=== PATIENT | male | born 1950 ===

== ENCOUNTER 2022-07-17 05:55 | Observation (INO) | payer MEDICARE, SELFPAY ==
[2022-07-17] VITALS (106 sets, daily range): BP systolic 114–207; BP diastolic 70–168; PULSE 59–104; RESP 15–29; TEMP 36.6–36.7; O2SAT 84–99; BMI 34.2
--- NOTE | 2022-07-17 06:00 | ECG_ITS ---
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 Measurements Intervals [place] Rate: 70 P: 58 IN: 157 QRS: -48 QRSD: 102 T: 19 QT: 372 QTc: 403 Interpretive Statements SINUS RHYTHM PATTERN CONSISTENT WITH PULMONARY DISEASE LEFT ANTERIOR FASCICULAR BLOCK [QRS AXIS <= -45, QR IN I, RS IN II] No previous ECG available for comparison Electronically Signed On 07-17-2022 18:16:30 SPEECH AND LANGUAGE SPECIALIST by Andrwe Rowland M.D. [email or web address] sault[id number]
--- NOTE | 2022-07-17 06:00 | XRR_ITS ---
PROCEDURE INFORMATION: Exam: XR Chest Exam date and time: 07/17/2022 6:28 AM Age: 71 years old Clinical indication: Cough and dyspnea; Additional info: Dyspnea/cough TECHNIQUE: Imaging protocol: Radiologic exam of the chest. Views: 1 view. COMPARISON: No relevant prior studies available. FINDINGS: Lungs: Lungs are clear. Pleural spaces: There is no pleural effusion or pneumothorax. Heart/Mediastinum: Cardiomediastinal contours are unremarkable. Bones/joints: Bones are unremarkable. XR/XR chest 1V portable [id number] IMPRESSION: No acute findings.
[2022-07-17 06:10] LABS: Basophils # 0.1 10^3/uL (0.0-0.1); Basophils % 0.9 %; Eosinophils # 0.1 10^3/uL (0.0-0.8); Eosinophils % 1.1 %; Hematocrit 43.2 % (42.0-52.0); Hemoglobin 14.3 g/dL (11.7-16.6); Lymphocytes # 2.2 10^3/uL (0.8-4.8); Lymphocytes % 27.2 %; Mean Corpuscular HGB Conc 33.1 g/dL (30.0-36.0); Mean Corpuscular Hemoglobin 31.1 pg (28.0-34.0); Mean Corpuscular Volume 93.9 fl (80-94); Mean Platelet Volume 9.5 fL (7.4-10.4); Monocytes # 0.8 10^3/uL (0.2-0.9); Monocytes % 9.5 %; Neutrophils # 4.84 10^3/uL (1.8-7.7); Nucleated Red Blood Cells % 0 %; Platelet Count 242 10^3/cmm (130-400); Red Cell Distribution Width 13.4 % (12.1-15.1); White Blood Count 7.9 10^3/uL (4.0-10.0)
[2022-07-17] MEDS: aspirin 81 mg Chew Tablet 162 MG PO (06:15)
--- NOTE | 2022-07-17 06:20 | ED_ITS ---
HPI - Chest Pain General: Chief Complaint: Chest Pain Stated Complaint: Chest Pains Time Seen by Provider: 07/17/22 05:59 Source: patient and family Mode of arrival: ambulatory History of Present Illness: 71-year-old male presents to the emergency room complaining of substernal chest pain that began around 2 or 3 this morning while he was sleeping. He has a history of hypertension SoloSite and hydrochlorothiazide. He had a similar episode of chest discomfort about 2 or 3 days ago resolved spontaneously. He had taken 2 aspirin prior to coming in he was given 2 more after arrival here. Patient does not speak Welsh his family member that is with him translates at the bedside. Patient is awake and alert not in no acute distress. Patient denies any history of diabetes or smoking no known history of previous coronary artery disease. He is not associated with taking that exacerbates or relieves the chest discomfort. MD complaint: chest pain Onset (ago): hour(s) Timing of current episode: episodic Prior episodes: Yes Onset: during rest Pain location: substernal Pain radiation: none Severity: mild Quality: tightness, aching and heaviness Relieving factors: nothing Associated symptoms: Deny abdominal pain, diaphoresis, dyspnea, fever(s), leg edema, nausea, palpitations, sense of impending doom, syncope or vomiting Treatment prior to arrival: none Review of Systems Const: Denies: fever(s), chills or diaphoresis ENMT: Denies: throat pain, ear or mastoid pain, nasal discharge or nasal congestion Card: Denies: chest pain, palpitations or syncope Resp: Denies: dyspnea GI: Denies: abdominal pain, nausea or vomiting : Denies: flank pain, dysuria, urinary frequency or urinary urgency Skin/Breast: Denies: rash or pruritus [facility] ED PFSH: Medical History (Updated 07/17/22 @ 08:41 by William Braswell DO) Hypertension Obesity Social History (Updated 07/17/22 @ 06:23 by William Braswell DO) Smoking and tobacco status: never smoked Physical Exam Const: COMMON NORMALS: no acute distress GENERAL APPEARANCE: cooperative and comfortable ORIENTATION/CONSCIOUSNESS: Yes awake, Yes oriented to person, Yes oriented to place and Yes oriented to time HENMT: COMMON NORMALS: normocephalic, atraumatic and hearing grossly normal bilaterally HEAD & SCALP: normocephalic and atraumatic Resp: COMMON NORMALS: normal respiratory effort, No retractions, No use of accessory muscles and clear to auscultation bilaterally AUSCULTATION: clear to auscultation bilaterally Cardio: COMMON NORMALS: regular rate, regular rhythm and No murmurs present (Cardio) RATE: regular rate RHYTHM: regular rhythm GI: COMMON NORMALS: Soft to palpation and No hepatosplenomegaly present AUSCULTATION: Yes normoactive bowel sounds PALPATION: Yes Soft to palpation, No Tenderness to palpation present (GI), No Guarding due to palpation present (GI) and Yes No hepatosplenomegaly present Extremity: COMMON NORMALS: normal to inspection, capillary refill normal, no clubbing, cyanosis or edema, no calf tenderness and no pedal edema Neuro: SENSORIUM/ORIENTATION: Yes oriented to person, Yes oriented to place and Yes oriented to time Skin: COMMON NORMALS: no rashes or lesions noted GENERAL SKIN EXAM: no rashes or lesions noted Course Vital Signs: Vital signs: Vital Signs Temperature 98.0 F 07/17/22 06:07 Pulse Rate 63 07/17/22 07:30 Respiratory Rate 18 07/17/22 06:35 Blood Pressure 155/85 07/17/22 07:30 Pulse Oximetry 96 07/17/22 07:30 Oxygen Delivery Me thod 07/17/22 07:30 MDM - Chest Pain Medical Decision Making Unstable angina. Positive delta troponin no EKG changes that are significant no ST elevation sinus rhythm with a left anterior fascicular block with a rate of 60. He is symptom-free at this time although remains somewhat hypertensive. He is not known to be diabetic his fasting glucose this morning was 111. Patient given [address] of [address] and will place him on topical Nitropaste start heparin admit to [facility] under Dr. Washington. Dr. Washington states he will contact on-call cardiology. Medical Records I reviewed the patient's medical records. Lab Data I reviewed the patient's lab results. 07/17/22 06:00 07/17/22 06:00 Laboratory Results WBC 7.9 10^3/uL (4.0-10.0) 07/17/22 06:00 RBC 4.60 10^6/uL (4.1-5.3) 07/17/22 06:00 Hgb 14.3 g/dL (11.7-16.6) 07/17/22 06:00 Hct 43.2 % (42.0-52.0) 07/17/22 06:00 MCV 93.9 fl (80-94) 07/17/22 06:00 MCH 31.1 pg (28.0-34.0) 07/17/22 06:00 MCHC 33.1 g/dL (30.0-36.0) 07/17/22 06:00 RDW 13.4 % (12.1-15.1) 07/17/22 06:00 Plt Count 242 10^3/cmm (130-400) 07/17/22 06:00 MPV 9.5 fL (7.4-10.4) 07/17/22 06:00 Neut % (Auto) 61.0 % 07/17/22 06:00 Lymph % (Auto) 27.2 % 07/17/22 06:00 [place] % (Auto) 9.5 % 07/17/22 06:00 Eos % (Auto) 1.1 % 07/17/22 06:00 Baso % (Auto) 0.9 % 07/17/22 06:00 Neut # (Auto) 4.84 10^3/uL (1.8-7.7) 07/17/22 06:00 Lymph # (Auto) 2.2 10^3/uL (0.8-4.8) 07/17/22 06:00 [place] # (Auto) 0.8 10^3/uL (0.2-0.9) 07/17/22 06:00 Eos # (Auto) 0.1 10^3/uL (0.0-0.8) 07/17/22 06:00 Baso # (Auto) 0.1 10^3/uL (0.0-0.1) 07/17/22 06:00 Nucleated RBC % (auto) 0 % 07/17/22 06:00 Nucleated RBCs # 0.0 /100WBC 07/17/22 06:00 Sodium 135 mmol/L (136-145) L 07/17/22 06:00 Potassium 3.9 mmol/L (3.5-5.1) 07/17/22 06:00 Chloride 102 mmol/L (98-107) 07/17/22 06:00 Carbon Dioxide 22 mmol/L (22-29) 07/17/22 06:00 Anion Gap 14.9 (5-19) 07/17/22 06:00 BUN 20 mg/dL (8-23) 07/17/22 06:00 Creatinine 1.0 mg/dL (0.7-1.2) 07/17/22 06:00 GFR Calculation Not Reportable 07/17/22 06:00 Glucose 111 mg/dL (65-115) 07/17/22 06:00 Calculated Osmolality 283 mOsm/kg (285-295) L 07/17/22 06:00 Calcium 9.1 mg/dL (8.5-10.5) 07/17/22 06:00 Total Bilirubin 0.4 mg/dL (0.15-1.2) 07/17/22 06:00 AST 32 U/L (0-40) 07/17/22 06:00 ALT 41 U/L (0-41) 07/17/22 06:00 Alkaline Phosphatase 83 U/L (40-130) 07/17/22 06:00 Troponin T Baseline 70 ng/L (0-15) H 07/17/22 06:00 Troponin T 120 Minute 98.75 ng/L (0-15) H 07/17/22 07:54 Delta Troponin T 28.75 ABS# (0-10) H* 07/17/22 07:54 Total Protein 7.2 g/dL (6.6-8.7) 07/17/22 06:00 Albumin 3.9 g/dL (3.5-5.2) 07/17/22 06:00 Globulin 3.3 g/dL (1.3-4.6) 07/17/22 06:00 Discharge Plan Discharge Patient Disposition: Placed in Observation Clinical Impression: Unstable angina pectoris, Hypertension, Non-ST elevation [place] (NSTEMI) Prescriptions: No Action losartan-hydrochlorothiazide 100-12.5 mg tablet 1 tab PO DAILY Patient Instructions: Opioid Safety, Pain Management Coding Level of Care Code ED Senior Materials Scientist for Pacheco Abel
[2022-07-17 06:32] LABS: Alanine Aminotransferase 41 U/L (0-41); Albumin Level 3.9 g/dL (3.5-5.2); Alkaline Phosphatase 83 U/L (40-130); Aspartate Amino Transferase 32 U/L (0-40); Blood Urea Nitrogen 20 mg/dL (8-23); Calcium 9.1 mg/dL (8.5-10.5); Carbon Dioxide 22 mmol/L (22-29); Chloride 102 mmol/L (98-107); Globulin 3.3 g/dL (1.3-4.6); Glucose 111 mg/dL (65-115); Osmolality Calculated 283 mOsm/kg (285-295); Sodium 135 mmol/L (136-145); Total Bilirubin 0.4 mg/dL (0.15-1.2); Total Protein 7.2 g/dL (6.6-8.7)
[2022-07-17 06:34] LABS: Troponin(5th) Baseline 70 ng/L (0-15)
[2022-07-17 06:41] LABS: Anion Gap 14.9 (5-19); Potassium 3.9 mmol/L (3.5-5.1)
--- NOTE | 2022-07-17 08:00 | ECG_ITS ---
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 Measurements Intervals [place] Rate: 61 P: 39 [place]: 157 QRS: -67 QRSD: 115 T: 33 QT: 407 QTc: 411 Interpretive Statements SINUS RHYTHM LEFT ANTERIOR FASCICULAR BLOCK [QRS AXIS <= -45, QR IN I, RS IN II] POSSIBLE LATERAL MYOCARDIAL INFARCTION , OF INDETERMINATE AGE [30 ms Q WAVE IN I/aVL/V5/V6] Compared to ECG 07/17/2022 06:01:38 Myocardial infarct finding now present Electronically Signed On 07-17-2022 18:21:23 WARP TYING MACHINE KNOTTER by Andrew Rowland M.D. [email or web address] medical [email or web address] specialty [email or web address] [email or web address]/store/[id number]
[2022-07-17 08:20] LABS: Troponin 5 2HR 98.75 ng/L (0-15)
[2022-07-17 08:27] LABS: Troponin 5 2HR Delta 28.75 ABS# (0-10)
[2022-07-17 08:54] LABS: INR 0.95 (0.8-1.2)
[2022-07-17 08:55] LABS: Partial Thromboplastin Time 25.3 SECONDS (23.9-36.7)
--- NOTE | 2022-07-17 08:57 | P.HP_ITS ---
Providers/Chief Complaint Admitting Physician: Anthony Carvajal MD, hospitalist Chief Complaint: Chest Pains History of Present Illness Marito Ortiz is a 71 year old male that presents to the emergency department with complaints of chest discomfort, substernal, pressure occurring around 2 AM this morning. He reports it lasted at least 10 minutes, but seem to come and go quite a bit before finally fading away. He had this previously, about 2 weeks ago. This lasted a short time as well and went away. He denies any prior history of heart disease. He does not relate any nausea, vomiting, blood in stool, black or tarry stools, radiation of the discomfort, shortness of breath. He is interviewed with his daughter who provides correlating history. He knows some Zimbabwean, but she provides some translation when he does not understand what is said. Review of Systems General: Reports: 10 or more systems reviewed and unremarkable except in HPI and below Const: Denies: fever(s) or chills Card: Reports: chest pain; Denies: swelling of feet/ankles Resp: Denies: dyspnea GI: Denies: abdominal pain, nausea, vomiting, hematochezia or melena Medications/Allergies Home Medications Medication Instructions Recorded Confirmed Last Taken Type losartan 100 1 tab PO DAILY 07/17/22 07/17/22 Unknown History mg-hydrochlorothiazide 12.5 mg tablet PFSH Acute PFSH: Medical History (Updated 07/17/22 @ 09:28 by Anthony Carvajal MD) Hypertension Hypertension Obesity Obstructive sleep apnea On CPAP Surgical History (Updated 07/17/22 @ 09:25 by Anthony Carvajal MD) History of hernia surgery Social History (Updated 07/17/22 @ 09:25 by Anthony Carvajal MD) Smoking and tobacco status: never smoked Alcohol intake: never Other PFSH information: Supplemental PFSH Information: He relates no family medical problems he is aware of Vitals/I&O/Wt Last Vital Signs Temp 98.0 F 07/17/22 06:07 Pulse 63 07/17/22 07:30 Resp 18 07/17/22 06:35 BP 155/85 07/17/22 07:30 Pulse Ox 96 07/17/22 07:30 O2 Del Method 07/17/22 07:30 Weight last 48 hrs Weight 79.379 kg Physical Exam Narrative: General exam is a male, no distress, denying chest discomfort currently. HEENT: Atraumatic and normocephalic. Pupils equally round. Oropharynx clear. Neck is supple no lymphadenopathy thyromegaly Cardiovascular regular rate and rhythm without murmur, no S3 or S4 Lungs clear no wheezing or crackles Abdomen is soft with positive bowel sounds. No obvious organomegaly exam was deferred Extremities no cyanosis clubbing or edema, cap refill brisk Skin no rash Neuro no obvious focal deficits. Data 07/17/22 06:00 07/17/22 06:00 Other Labs: INR 0.95 LFTs normal Troponin initial 70 with repeat of 98 Albumin 3.9 Chest x-ray no infiltrate by my read EKG demonstrates normal sinus rhythm, left axis deviation, poor R wave progression. No significant ST elevation or deviation is noted. Left anterior fascicular block by my interpretation A&P Assessment and plan (1) Non-ST elevation [place] (NSTEMI): Patient presents with chest discomfort concerning for myocardial infarction. Troponin delta is consistent with non-ST elevation myocardial infarction. Plavix, heparin, aspirin given Add statin Lipid profile in the morning Continue Plavix, aspirin, heparin currently Cardiology consultation. I discussed his case with cardiology as well as the ER physician. We will evaluate if beta-edna is needed. Currently heart rate around 60 so will not initiate at this time Nitroglycerin topical Continue his home blood pressure medication, losartan component at 100 mg daily (2) Hypertension: Continue losartan Evaluate if other additions need to occur (3) Obstructive sleep apnea: He will bring in his home CPAP machine. To wear when sleeping. Plan Full code Heparin will suffice for DVT prophylaxis Attestations Medical Necessity Statement*: May require less than 2 midnight stay. Observation currently Diagnoses Non-ST elevation [place] (NSTEMI) I21.4 Hypertension I10 Obstructive sleep apnea G47.33 Time Spent (min) 41
[2022-07-17] MEDS: heparin 5,000 unit/mL INJ 1 mL IV (09:05)
[2022-07-17] MEDS: heparin drip 25,000 UNIT/500 ML PREMIX 22 UNIT IV (09:07)
[2022-07-17] MEDS: clopidogrel 300 mg Tablet PO (09:09)
--- NOTE | 2022-07-17 10:41 | P.CONIM_ITS ---
Providers/Reason For Consult Consulting Physician/Specialty*: Cardiovascular medicine Reason for Consult*: Chest pain, elevated troponin Requesting Physician: Wei Attending Physician: Wei History of Present Illness History of Present Illness Marito Ortiz is a 71 year old male who has no known prior history of heart disease. He speaks Ecuadorean. His daughter interprets. He has been having chest discomfort off and on for 2 weeks. This morning at 3:00 it became persistent and would not go away. He contacted his family member who brought him into the emergency room. His first troponin was 70 and the second 99. The chest x-ray is negative. His EKGs are unremarkable. He is free of pain. He has been given aspirin, 1 inch of Nitropaste and 300 mg of Plavix. He is also been given heparin bolus and started on a drip. Review of Systems Narrative: Review of systems is negative. Medications/Allergies Home Medications Medication Instructions Recorded Confirmed Last Taken Type losartan 100 1 tab PO DAILY 07/17/22 07/17/22 Unknown History mg-hydrochlorothiazide 12.5 mg tablet Current Medications Generic Name Dose Route Start Last Admin Trade Name Freq PRN Reason Stop Dose Admin Heparin Sodium (Porcine) 0 unit 07/17/22 08:28 07/17/22 09:05 Heparin 5,000 Unit/Ml Inj 1 Ml IV 4,000 unit PRN PRN Administration Heparin weight-base protocol Protocol Heparin Sodium/Sodium Chloride 25,000 unit in 500 mls @ 0 mls/hr 07/17/22 08:30 07/17/22 09:07 Heparin Drip IV 13.86 unit/kg/hr .Q0M IVONNE 22 mls/hr Administration Protocol Per Protocol PFSH Acute PFSH: Medical History (Updated 07/17/22 @ 09:28 by Anthony Carvajal MD) Hypertension Hypertension Obesity Obstructive sleep apnea On CPAP Surgical History (Updated 07/17/22 @ 09:25 by Anthony Carvajal MD) History of hernia surgery Social History (Updated 07/17/22 @ 09:25 by Anthony Carvajal MD) Smoking and tobacco status: never smoked Alcohol intake: never Vitals/I&O/Wt Last Vital Signs Temp 98.0 F 07/17/22 06:07 Pulse 63 07/17/22 07:30 Resp 18 07/17/22 06:35 BP 155/85 07/17/22 07:30 Pulse Ox 96 07/17/22 07:30 O2 Del Method 07/17/22 07:30 Weight last 48 hrs Weight 175 lb Physical Exam Narrative: GENERAL: In general he looks and feels well. He is in no pain at this time. HEENT: Exam within normal limits. NECK: Supple without jugular vein distention. The carotid upstroke is normal without bruits. BACK: Exam normal. LUNGS: Clear. HEART: Regular rate and rhythm. ABDOMEN: Benign without organomegaly or tenderness. EXTREMITIES: No edema. NEUROLOGIC: Exam normal. SKIN: Unremarkable. Data 07/17/22 06:00 07/17/22 06:00 A&P Assessment and plan (1) Obstructive sleep apnea: (2) Hypertension: (3) Unstable angina pectoris: (4) Non-ST elevation [place] (NSTEMI): (5) Hypertension: Plan He clearly is having a cardiac event. We will schedule cardiac catheterization for 7:00 tomorrow morning however we will go sooner if he starts having chest pain. His EKG is unremarkable. Consult Attestations Medical Necessity Statement: Admission for non-ST segment elevation [place] and Moderate Time for a total of 35 minutes, includes reviewing past or interval history, examining/interviewing patient, placing orders, counseling patient/family/other support, updating patient/family/other support, discussing plan of care with staff, communicating with other healthcare providers, documenting encounter and coordinating care Diagnoses Obstructive sleep apnea G47.33 Hypertension I10 Unstable angina pectoris I20.0 Non-ST elevation [place] (NSTEMI) I21.4 Hypertension I10
--- NOTE | 2022-07-17 12:05 | ECG_ITS ---
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 Measurements Intervals [place] Rate: 72 P: 56 [place]: 170 QRS: -74 QRSD: 103 T: 40 QT: 395 QTc: 433 Interpretive Statements SINUS RHYTHM PATTERN CONSISTENT WITH PULMONARY DISEASE LEFT ANTERIOR FASCICULAR BLOCK [QRS AXIS <= -45, QR IN I, RS IN II] Compared to ECG 07/17/2022 08:04:01 Myocardial infarct finding no longer present Electronically Signed On 07-17-2022 18:21:39 [employer] by Andrew Rowland M.D. [id number]
[2022-07-17 13:37] LABS: Troponin 5 6HR 134.3 ng/L (0-15); Troponin 5 6HR Delta 64.3 ng/L (0-12)
--- NOTE | 2022-07-17 15:17 | USCV_ITS ---
Marito Ortiz Age: 71 Gender: M : 1950 Exam Date: 07/17/2022 16:16 Ordering Phys: Anthony Carvajal MD Technologist: MYRON Exam Location: [facility] [place] Indication: CHEST PAIN BP: 110 / 61 HR: 62 Rhythm: Sinus Technical Quality: Suboptimal MEASUREMENTS (Male / Female) Normal Values 2D ECHO LVOT Diameter 2.0 cm LV Ejection Fraction MOD 2C 57.3 % LV Ejection Fraction 2C AL 54.3 % LA Diameter 3.2 cm LA Width 2.8 cm LA Height 4.0 cm RA Width 3.0 cm RA Height 4.4 cm Aorta at Sinotubular Diameter 2.1 cm DOPPLER AV Peak Velocity 170.0 cm/s LVOT Peak Velocity 130.0 cm/s AV Area Cont Eq vti 2.2 cm squared AV Area Cont Eq pk 2.4 cm squared MV Peak Velocity 120.0 cm/s MV Area PHT 3.7 cm squared Mitral E to A Ratio 0.6 MV E' Velocity 43.5 cm/s Mitral E to MV E' Ratio 8.6 Mitral E to LV E' Lateral Ratio 8.4 Mitral E to LV E' Septal Ratio 8.9 TR Peak Velocity 149.8 cm/s TR Peak Gradient 9.0 mmHg TR Mean Velocity 126.2 cm/s TR Mean Gradient 6.5 mmHg TR Velocity Time Integral 40.0 cm TV Peak E Velocity 30.0 cm/s Right Atrial Pressure 8.0 mmHg Pulmonary Artery Systolic Pressu 17.0 mmHg FINDINGS Left Ventricle All views are poor and not useful with the exception of the apical view. The ejection fraction is probably normal. There is normal wall motion in this view. Ejection fraction is 55 to 60%. Grade 1 diastolic dysfunction. Right Ventricle Normal right ventricular size and systolic function. Normal right ventricular systolic pressure. Right Atrium The right atrium is normal in size. Left Atrium The left atrium is normal in size. Mitral Valve Structurally normal mitral valve. No mitral valve regurgitation. Aortic Valve Aortic valve not well visualized. No aortic valve regurgitation. No aortic valve stenosis. Tricuspid Valve Tricuspid valve not well visualized. No tricuspid valve regurgitation. Pulmonic Valve Pulmonic valve not well visualized. Pericardium Normal pericardium without effusion. Aorta Normal ascending aorta dimension. IVC Inferior vena cava not visualized. CONCLUSIONS All views are poor and not useful with the exception of the apical view. The ejection fraction is probably normal. There is normal wall motion in this view. Ejection fraction is 55 to 60%. Grade 1 diastolic dysfunction. There are no prior echocardiogram studies to compare. Dr. Andrew Rowland MD (Electronically Signed) Final Date: 17 July 2022 18:11 S
[2022-07-17] MEDS: sodium chloride 0.9% 1,000 ML 50 ML IV (15:55)
[2022-07-17] MEDS: pantoprazole DR 40 mg Tablet PO (16:03)
[2022-07-17] MEDS: nitroglycerin 1 gm/inch oint Pkt 0.5 INCH TOPICAL (16:07)
[2022-07-17] MEDS: atorvastatin 40 mg Tablet PO (21:14)
[2022-07-18] VITALS (79 sets, daily range): BP systolic 94–180; BP diastolic 59–140; PULSE 59–97; RESP 12–30; TEMP 36.5–36.8; O2SAT 93–98
[2022-07-18 03:34] LABS: Basophils # 0.1 10^3/uL (0.0-0.1); Basophils % 0.8 %; Eosinophils # 0.2 10^3/uL (0.0-0.8); Eosinophils % 3.1 %; Hematocrit 41.8 % (42.0-52.0); Hemoglobin 13.6 g/dL (11.7-16.6); Lymphocytes % 39.1 %; Mean Corpuscular HGB Conc 32.5 g/dL (30.0-36.0); Mean Corpuscular Hemoglobin 31.6 pg (28.0-34.0); Monocytes # 0.8 10^3/uL (0.2-0.9); Monocytes % 10.5 %; Neutrophils # 3.55 10^3/uL (1.8-7.7); Neutrophils % 46.1 %; Nucleated Red Blood Cells % 0 %; Platelet Count 215 10^3/cmm (130-400); Red Blood Count 4.31 10^6/uL (4.1-5.3); Red Cell Distribution Width 13.6 % (12.1-15.1); White Blood Count 7.7 10^3/uL (4.0-10.0)
[2022-07-18 03:50] LABS: Anion Gap 14.2 (5-19); Blood Urea Nitrogen 16 mg/dL (8-23); Calcium 8.9 mg/dL (8.5-10.5); Carbon Dioxide 25 mmol/L (22-29); Chloride 104 mmol/L (98-107); Cholesterol 101 mg/dL (0-200); Glucose 114 mg/dL (65-115); HDL Cholesterol 42 mg/dL (60-100); LDL Cholesterol Calculated 40 mg/dL (50-129); LDL HDL Ratio 0.95 RATIO (0.00-3.22); Magnesium 2.2 mg/dL (1.7-2.3); Osmolality Calculated 290 mOsm/kg (285-295); Potassium 4.2 mmol/L (3.5-5.1); Sodium 139 mmol/L (136-145); Triglycerides 93 mg/dL (0-150)
[2022-07-18 03:56] LABS: Partial Thromboplastin Time 76.4 SECONDS (23.9-36.7)
[2022-07-18] MEDS: aspirin 325 mg Tablet PO (05:55)
[2022-07-18] MEDS: diphenhydrAMINE 50 mg Capsule PO (05:55)
[2022-07-18] MEDS: sodium chloride 0.9% 1,000 ML 50 ML IV (05:57)
--- NOTE | 2022-07-18 06:05 | XACV_ITS ---
Exam Room: [facility] Ht: 152 cm Wt: 79 kg BSA: 1.87 m2 Gender: Male : 1950 Exam Priority: Routine Procedure(s): Procedure Description: Diagnostic procedure Procedure Description: PCI procedure Procedure Description: Left Heart Catheterization Procedure Description: Left ventriculography Procedure Description: PTCA Procedure Description: Coronary Angiography Janett AGOSTO; Diagnostic Cath Status: Elective Diagnostic Findings * Wuc-[id number]-[id number] male with fairly typical chest pain and troponin elevation. Stable after initial medication administration. Recommended for coronary angiography. Procedure done via the right radial artery. Procedure was done with his daughter in the room as the full time staff interpreter. * Coronary angiography reveals right coronary artery dominance. Left main coronary artery is normal. Circumflex is a relatively large vessel. There is a 30% ostial stenosis. There is a 30 to 40% stenosis of the proximal second obtuse marginal branch. Otherwise the circumflex is relatively normal. The LAD is what appears to be normal in size very proximally and then quickly bifurcates into the remainder of the LAD and a diagonal branch. There are several 60 to 70% stenoses in the diagonal branch. The LAD narrows down significantly after the takeoff of the diagonal branch. For the entire proximal portion of the LAD it is quite narrow and in the midportion of this there is an 80% discrete stenosis. The remainder of the LAD appears normal. The right coronary artery is the dominant vessel and ends distally as multiple very small posterior left ventricular branches and a posterior descending artery. The posterior descending artery is likewise quite small. There are multiple 90+ percent lesions in the posterior descending artery along its entire course.. PCI Status: Elective PCI LVEF Assessed: Yes PCI Indication: NSTE - ACS Interventional Findings * I felt the LAD might be the culprit lesion though there certainly could be some involvement of the entire course of the posterior descending artery. Initially I placed a 2.5 mm balloon in the proximal LAD which was difficult to place due to the small nature of the vessel. Balloon angioplasty was performed. I made an attempt to place a stent after this and simply could not pass the stent. I also made an attempt to pass the stent into the diagonal branch. This was also unsuccessful. I decided to stop at this point and see about treating him medically. I felt the PDA was too small to undergo intervention. Decision for PCI with Surgical Consult: No PCI for Multi-vessel Disease: No Conclusions 1. Two-vessel disease with plain old balloon angioplasty of the proximal LAD. Recommendations * Treat medically. If fails consider balloon angioplasty of the diagonal and perhaps the posterior descending artery though these vessels are relatively small. Interventional RX Recommendation: PCI w/o planned CABG Diagnostic RX Recommendation: PCI w/o planned CABG Anticoagulation: Heparin Ventriculography Ejection Fraction: 65.0 % Pressures Phase:Rest AO : 97 / 65 ( 80 ) @ 7:12:00 AM 97 / 68 ( 82 ) @ 7:17:00 AM 74 / 50 ( 55 ) @ 7:22:00 AM 114 / 69 ( 90 ) @ 7:29:00 AM 128 / 83 ( 105 ) @ 7:40:00 AM 93 / 74 ( 84 ) @ 7:50:00 AM LV : 131 / -6 / 14 @ 7:21:00 AM 131 / -15 / 15 @ 7:22:00 AM Clinical Evaluation EBL: 5mL-10mL Procedural Details Procedure Consent Obtained. Admit Source: In Patient. Pre-Procedure Time Out. Identified patient by full name and date of as verbalized by the patient/guarantor. Does the consent match the physician's order: Yes. Accurate & Complete Informed Consent: Yes. Inpatient/Outpatient History & Physical on Chart: Yes. If H&P is completed, is and addenduem needed: No; If yes, is the addendum complete: N/A. Visualize and Verify Site with Patient/Guarantor: N/A. Relevant Radiology Images available: N/A. The risks, benefits, and alternatives of sedation and/or procedure were discussed by physician. The patient agrees to continue. Procedure started. Current diagnosis: NSTEMI. PERRLA. Strong, equal hand makeup artist bilaterally. Lungs clear x 5 lobes. IV Site on Arrival: 20 gauge in the left forearm. IV Fluids: 0.9% NaCl at KVO. 200 mL infused prior to mobile lab technician. Pre Procedural Pulses: bilateral posterior tibial was 3+. Pre Procedural Pulses: bilateral dorsalis pedis was 3+. Pre Procedural Pulses: bilateral radial was 3+. Oxygen started at 2liters/min via nasal canula. right groin was prepped with chloroprep then draped in the usual sterile fashion. right radial was prepped with chloroprep then draped in the usual sterile fashion. Physician notified. Baseline sample Acquired. HR: 59 BPM. [facility] Clinical Fraility Score: 3: Managing Well. Computer Repair Technician Indications: ACS <= 24 hours. Chest Pain Symptom Assessment: Typical Angina Symptoms. Cardiovascular Instability: No. Correct patient, site and procedure confirmed by cath team. Physician arrived. Physician scrubbed in. Immediate Pre-Procedure Time Out. Correct Patient: Yes; Correct Procedure: Yes; Correct Site: Yes; Correct Patient Position: Yes; Correct Supplies: Yes; Dried Flammable Prep: Yes; Blood Products Available: N/A;. Lidocaine 1% infiltrated to the right radial. Arterial access obtained. A 6 [place] TIG catheter in over wire. Multiple views taken of left coronary artery. Catheter redirected to the RCA. Multiple views taken of right coronary artery. Catheter removed over the exchange wire. A 6 [place] Angled Pig catheter in over wire. LV gram performed in CARTER @ 10 mL/second for a total of 30 mL. EDP Sample taken: LV 131/-6,14; HR: 66 BPM; SpO2: 97%. EDP Sample taken: LV 131/-16,15; HR: 74 BPM; SpO2: 96%. Pullback taken: LV Off; AO Off; Mean: , Peak to Peak: , SEP: ; HR: 70 BPM; SpO2: 95%. Physician review of cine films. Catheter removed over the exchange wire. 6 citizen [place] XB 3 guide catheter was inserted over the wire. [place] guidewire was advanced through the guide catheter to lesion in the prox LAD. Stent inserted to lesion in the prox LAD. Unable to cross lesion. Intact stent removed. Balloon inserted to lesion in the prox LAD. Inflation number : 1 A AB TREK [id number] RX BALLOON was prepped and advanced across the Prox LAD , then inflated to 8 EVER[place]O for 0:26 seconds. Balloon out. Stent inserted to lesion in the prox LAD. Unable to cross lesion. Intact stent removed. Guideliner inserted. [id number] Stent inserted to lesion in the prox LAD. Wire redirected down the first diag. Unable to cross lesion. Intact stent removed. Wire out. Guide catheter out. A TR Band was successful obtaining hemostatsis at the Right Radial artery insertion site. PERRLA. Strong, equal hand makeup artist bilaterally. No VTE prophylaxis required. Medication's Wasted: Lidocaine 1% = 1 mL. Medication's Wasted: Nitro = 49.8 mg. Medication's Wasted: Heparin = 1000 units. Medication's Wasted: Other = versed 1mg. Medication's Wasted: Other = 50 mcg. Total IV fluids: 125 mL. Post-op diagnosis: CAD. Complications: none. Estimated blood loss: 5mL-10mL. Responsiveness - Normal response to verbal stimuli; alert and oriented, PERRLA. Airway - Unaffected, no intervention required; spontaneous ventilation. Circulation: W/N/L, pulses unchanged. Nausea/Vomiting: No. Procedure completed. Patient transferred by bed to 1st floor. Vital chart was stopped. Access Site Site: Right Radial artery Sheath Size: 6 Fr Hemostasis Method: TR Band Hemostasis Success: Successful Procedure Medications Start: 7:09 AM Stop: 7:09 AM Medication: Versed Amount: 1 mg Route: I.V. Start: 7:09 AM Stop: 7:09 AM Medication: Fentanyl Amount: 50 mcg Route: I.V. Start: 7:10 AM Stop: 7:10 AM Medication: Nitrogylcerin Amount: 200 mcg Route: I.A. Start: 7:14 AM Stop: 7:14 AM Medication: Heparin Amount: 5000 units Route: I.V. I, the attending physician, have reviewed and verified all procedure medications. Yes, all medications given per verbal order History/Risk Factors Hypertension: Yes Dyslipidemia: No Peripheral Arterial Disease (PAD): No Myocardial Infarction ([place]): No Obesity: No Tobacco Use: Never Prior Interventions PCI: No CABG: No Valve Surgery: No Report Signatures Finalized by Dr. Andrew Rowland MD on 07/18/2022 02:48 PM
--- NOTE | 2022-07-18 08:29 | PC.CHAP ---
Pastoral Care Encounter/Spiritual Assessment Type of Contact [] Declined it systems engineer visit [] Patient/Family/Request visit [] Outpatient visit [] Follow-up visit [] Physician referral [] Code/Alert [x] Routine visit [] Staff referral [] Actively dying [] Patient sleeping [] Family support [] [] Out of room [] Palliative care [] [x] Receiving care in room [] Pre-surgical visit [] Trauma [] Long length of stay [] ICU visit [] Other: Relational/Emotional Strength [] Patient feels connected with others/family/visitors/staff [] Distress [] Loneliness/isolation [] Abandonment Spirituality of Patient [] Person of Mandy [] Attends Lutheran of their Mandy [] Believes in Prayer [] Reads Bible or Denominational materials [] There are Spiritual issues to be addressed Charge Hand Interventions [] Prayer [] Active listening [] Non-anxious presence [] Spiritual/emotional support [] Crisis/trauma care [] Spiritual counseling [] Bereavement support [] Provided bereavement packet [] Provided Bible/devotional materials [] Provided toy/stuffed animal, coloring book to patient or family member [] Provided Communion [] Anointing/[place] [] Salvation [] Completed spiritual assessment [] Other: Impact on Illness or Injury [] Angry [] Fearful [] Anxious [] Often cries [] Exhaustion [] Unable to work [] Unable to attend denominational [] Unable to walk/stand [] Unable to read [] Unable to drive [] Unable to eat/drink [] Unable to sleep [] Unable to be with family [] Patient intubated [] Other: Summary Time spent with patient
[2022-07-18] MEDS: losartan 50 mg Tablet 100 MG PO (09:18)
[2022-07-18] MEDS: clopidogrel 75 mg Tablet PO (09:18)
[2022-07-18] MEDS: isosorbide mononitrate ER 30 mg Tablet PO (09:18)
[2022-07-18] MEDS: sodium chloride 0.9% 1,000 ML 100 ML IV (09:19)
[2022-07-18] MEDS: pantoprazole DR 40 mg Tablet PO (09:19)
[2022-07-18 10:50] LABS: Partial Thromboplastin Time 87.3 SECONDS (23.9-36.7)
--- NOTE | 2022-07-18 11:29 | PM.PN ---
Subjective Subjective: Marito reports he is doing okay. Went underwent angioplasty this morning. Disease was not amenable to stenting. Denies any chest discomfort currently. Nurse noted some blood with urination so urinalysis is going to be sent. Medications: Reviewed: Yes Vitals/I&O/Wt Last Vital Signs Temp 97.7 F 07/18/22 03:26 Pulse 74 07/18/22 09:00 Resp 14 07/18/22 09:00 BP 171/133 07/18/22 09:00 Pulse Ox 95 07/18/22 09:00 O2 Del Method 07/17/22 07:30 07/17/22 07/18/22 07/18/22 22:59 06:59 14:59 Intake Total 714.800 / 714.800 152.667 / 867.467 Output Total 625 / 625 Balance 89.800 / 89.800 152.667 / 242.467 Weight last 48 hrs Weight 79.379 kg Physical Exam Narrative: General exam is a male, no distress Neck is supple no lymphadenopathy thyromegaly Cardiovascular regular rate and rhythm without murmur, no S3 or S4 Lungs clear no wheezing or crackles Abdomen is soft with positive bowel sounds. No obvious organomegaly exam normal penis Extremities no cyanosis clubbing or edema, cap refill brisk Data 07/18/22 02:50 07/18/22 02:50 A&P Assessment and plan (1) Non-ST elevation OK (NSTEMI): Patient presents with chest discomfort concerning for myocardial infarction. Troponin delta is consistent with non-ST elevation myocardial infarction. Plavix, heparin, aspirin were initiated Continue statin He has now had an angiogram, and had diffuse disease. Angioplasty occurred but lesions were not amenable to stenting Plan continue medical treatment currently. Discussed with cardiology. Continue Plavix, aspirin, statin, nitroglycerin. Appreciate cardiology consultation Initially was bradycardic. Will consider beta-edna after evaluation of heart rate further CBC, BMP tomorrow (2) Hypertension: Continue losartan (3) Obstructive sleep apnea: He will bring in his home CPAP machine. To wear when sleeping. Plan Full code Postprocedure. Likely start Lovenox tomorrow. Was previously on a heparin drip Attestations Medical Necessity Statement*: Needs continued hospitalization for close follow-up following angioplasty Diagnoses Non-ST elevation OK (NSTEMI) I21.4 Hypertension I10 Obstructive sleep apnea G47.33 Time Spent (min) 23
[2022-07-18] MEDS: aspirin 81 mg EC Tablet PO (11:45)
[2022-07-18 11:46] LABS: Bilirubin Urine Neg (Negative); Blood Urine 3+ (Negative); Glucose Urine UA Norm (Normal); Ketones Urine Negative (Negative); Leukocyte Esterase Urine Negative (Negative); Nitrate Urine Negative (Negative); Protein Urine Neg (Negative); RBC Urine >100 /hpf (0-2); Urine Appearance Hazy (CLEAR); Urine Color Yellow (Yellow); Urobilinogen Urine Neg (Negative); WBC Urine RARE /hpf (0-5); pH Urine 6.5 (5-7)
[2022-07-18 11:47] LABS: Add Urine Culture? Yes
--- NOTE | 2022-07-18 19:26 | PC.NURSE ---
shift report pt post pci with balloon angioplasty to mid LAD. pt denies any chest pain or discomfort post angiogram. he is up and going to bedside commode. family at bedside. vital signs monitored. pt had episodes of bleeding in his penile area. hospitalist and farm truck driver notified. orders received.
[2022-07-18] MEDS: atorvastatin 40 mg Tablet PO (20:45)
[2022-07-19] VITALS: BP 119/66; PULSE 70; RESP 15; TEMP 36.6; O2SAT 96
[2022-07-19 04:00] VITALS: BP 130/66; PULSE 68; RESP 16; TEMP 36.7; O2SAT 98
[2022-07-19 05:06] LABS: Basophils # 0.1 10^3/uL (0.0-0.1); Basophils % 0.8 %; Eosinophils # 0.2 10^3/uL (0.0-0.8); Eosinophils % 2.5 %; Hematocrit 40.7 % (42.0-52.0); Hemoglobin 13.1 g/dL (11.7-16.6); Lymphocytes # 2.4 10^3/uL (0.8-4.8); Lymphocytes % 32.9 %; Mean Corpuscular HGB Conc 32.2 g/dL (30.0-36.0); Mean Corpuscular Hemoglobin 30.8 pg (28.0-34.0); Mean Corpuscular Volume 95.8 fl (80-94); Monocytes # 0.9 10^3/uL (0.2-0.9); Monocytes % 12.5 %; Neutrophils # 3.69 10^3/uL (1.8-7.7); Neutrophils % 50.9 %; Nucleated Red Blood Cells % 0 %; Platelet Count 214 10^3/cmm (130-400); Red Blood Count 4.25 10^6/uL (4.1-5.3); Red Cell Distribution Width 13.8 % (12.1-15.1); White Blood Count 7.3 10^3/uL (4.0-10.0)
[2022-07-19] MEDS: sodium chloride 0.9% 1,000 ML 100 ML IV (05:14)
[2022-07-19 05:42] LABS: Anion Gap 12.9 (5-19); Blood Urea Nitrogen 12 mg/dL (8-23); Calcium 8.8 mg/dL (8.5-10.5); Carbon Dioxide 25 mmol/L (22-29); Chloride 104 mmol/L (98-107); Glucose 96 mg/dL (65-115); Osmolality Calculated 286 mOsm/kg (285-295); Potassium 3.9 mmol/L (3.5-5.1); Sodium 138 mmol/L (136-145)
[2022-07-19 05:48] VITALS: PULSE 69
--- NOTE | 2022-07-19 07:14 | P.PN_ITS ---
Subjective Subjective: Marito is doing well this morning. Angiography yesterday revealed a fairly tight proximal LAD lesion which is a small vessel. I was able to get a balloon in place but was not able to pass a stent due to the small nature of the vessel. He also has a fairly large diagonal branch which I was also not able to get a stent into. Finally he has a very small posterior descending artery which is severely diffusely diseased. Otherwise the major vessels are without significant lesions. I have placed him on long-acting nitrate and beta-edna and he has been stable overnight. Fortunately, his EKG did not localize which suggest that the troponin elevation was probably from one of the 2 or 3 very small diffusely diseased vessels. Additionally his echo showed normal left ventricular function as did the ventriculogram. Hopefully, he will do well with medical treatment. Vitals/I&O/Wt Last Vital Signs Temp 98.0 F 07/19/22 04:00 Pulse 69 07/19/22 05:48 Resp 16 07/19/22 04:00 BP 130/66 07/19/22 04:00 Pulse Ox 98 07/19/22 04:00 O2 Del Method 07/19/22 04:00 07/18/22 07/19/22 07/19/22 22:59 06:59 14:59 Intake Total 2505.033 / 3341.033 Balance 2505.033 / 3241.033 Physical Exam Narrative: GENERAL: In general he is comfortable at rest without any chest pain HEENT: Exam within normal limits. NECK: Supple without jugular vein distention. The carotid upstroke is normal without bruits. BACK: Exam normal. LUNGS: Clear. HEART: Regular rate and rhythm. ABDOMEN: Benign without organomegaly or tenderness. EXTREMITIES: No edema. The right radial artery entry site is flat, dry and without hematoma or bleeding. NEUROLOGIC: Exam normal. SKIN: Unremarkable. Data 07/19/22 04:39 07/19/22 04:39 A&P Assessment and plan (1) Obstructive sleep apnea: (2) Hypertension: (3) Unstable angina pectoris: (4) Non-ST elevation NH (NSTEMI): (5) Obesity: (6) Hypertension: Plan He may go home today. I spoke to him through his daughter today who is a very good informaticist. Marito and his live in [place] on the [facility] border near [place]. They are in the process of moving here but that we will take a month or so. They will be here for another week so I will schedule him an appointment for the nurse practitioner in the office in 1 week for radial artery check and chemistry panel and make sure that he is doing okay. After that, we will see him in our clinic in 3 months. He will try to establish with a primary care provider once he moves here for good. The only restriction in his activity is no lifting over 5 pounds for 2 days with the right arm. He should go home on atorvastatin, Plavix, losartan, diet, aspirin in the doses currently prescribed. Attestations Medical Necessity Statement*: Should be ready for discharge today Coding Level of Care Code 48825 Moderate MDM includes number and complexity of problems actively addressed during encounter, amount and/or complexity of data reviewed/ordered and described risk of complication, morbidity or mortality of management as document ed and Moderate Time for a total of 30 minutes, includes reviewing past or interval history, examining/interviewing patient, placing orders, counseling patient/family/other support, updating patient/family/other support, discussing plan of care with staff, communicating with other healthcare providers, documenting encounter and coordinating care Diagnoses Obstructive sleep apnea G47.33 Hypertension I10 Unstable angina pectoris I20.0 Non-ST elevation NH (NSTEMI) I21.4 Obesity E66.9 Hypertension I10
[2022-07-19 07:29] VITALS: PULSE 76; RESP 16; O2SAT 100
[2022-07-19 08:00] VITALS: BP 159/80; PULSE 77; RESP 18; TEMP 36.7; O2SAT 95
--- NOTE | 2022-07-19 08:00 | P.DS_ITS ---
Discharge Providers Date of Admission: 07/17/22 08:36 Date of Discharge: July 19, 2022 Attending Provider at Admission: Anthony Carvajal MD Attending Provider at Discharge: Anthony Carvajal MD Diagnoses at Discharge Discharge Diagnosis (1) Obstructive sleep apnea: Status: Acute Permanent problem details: On CPAP (2) Hypertension: Status: Acute (3) Unstable angina pectoris: Status: Acute (4) Non-ST elevation [place] (NSTEMI): Status: Acute (5) Obesity: Status: Acute (6) Hypertension: Status: Acute Reason for Visit Reason for Visit: Chest Pains Hospital Course Hospital Course Marito is a 71-year-old male who presented to the hospital with complaints of chest discomfort. Delta troponin was concerning for non-ST elevation myocardial infarction. He was placed on statin, anticoagulation with heparin, given aspirin, given Plavix and cardiology was consulted. Echocardiogram demonstrated preserved EF. Angiogram was performed July 18 which demonstrated some diffuse disease, and culprit vessel appeared to be proximal LAD and diagonal that were angioplastied. This was not amenable to stenting. Medical treatment was recommended. He did well during his hospital stay with no recurrent chest discomfort. He did have one episode of a little bit of burning and small amount of blood at the beginning of his stream after coming back from angiogram. Urinalysis showed greater than 100 red cells, no whites. He had no recurrence of this in the hospital and it was thought to likely be secondary to urethral stricture but urine will need to be rechecked as an outpatient. I discussed this with him and his family. I discharged hospital course was reviewed, as well as plan and he agreed with the plan going forward. He was encouraged to follow-up and take all medicines as prescribed. Physical Exam Narrative: General exam no distress Neck is supple Cardiovascular regular rate and rhythm without murmur Lungs clear Abdomen is soft, positive bowel sounds Extremities no cyanosis clubbing or edema, right wrist angiogram site without significant hematoma. 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 echo complete* [id number] Routine Ultrasound 07/17/22 15:17 Completed Pending at discharge Category Date Time Status Urine Culture Routine Lab 07/18/22 11:20 Received Radiology Impressions Chest X-Ray 07/17/22 06:00 IMPRESSION: No acute findings. Laboratory Results WBC 7.3 10^3/uL (4.0-10.0) 07/19/22 04:39 RBC 4.25 10^6/uL (4.1-5.3) 07/19/22 04:39 Hgb 13.1 g/dL (11.7-16.6) 07/19/22 04:39 Hct 40.7 % (42.0-52.0) L 07/19/22 04:39 MCV 95.8 fl (80-94) H 07/19/22 04:39 MCH 30.8 pg (28.0-34.0) 07/19/22 04:39 MCHC 32.2 g/dL (30.0-36.0) 07/19/22 04:39 RDW 13.8 % (12.1-15.1) 07/19/22 04:39 Plt Count 214 10^3/cmm (130-400) 07/19/22 04:39 MPV 10.0 fL (7.4-10.4) 07/19/22 04:39 Neut % (Auto) 50.9 % 07/19/22 04:39 Lymph % (Auto) 32.9 % 07/19/22 04:39 Dick[place] % (Auto) 12.5 % 07/19/22 04:39 Eos % (Auto) 2.5 % 07/19/22 04:39 Baso % (Auto) 0.8 % 07/19/22 04:39 Neut # (Auto) 3.69 10^3/uL (1.8-7.7) 07/19/22 04:39 Lymph # (Auto) 2.4 10^3/uL (0.8-4.8) 07/19/22 04:39 Dickens # (Auto) 0.9 10^3/uL (0.2-0.9) 07/19/22 04:39 Eos # (Auto) 0.2 10^3/uL (0.0-0.8) 07/19/22 04:39 Baso # (Auto) 0.1 10^3/uL (0.0-0.1) 07/19/22 04:39 Nucleated RBC % (auto) 0 % 07/19/22 04:39 Nucleated RBCs # 0.0 /100WBC 07/19/22 04:39 PT 13.00 SECONDS (12.1-14.9) 07/17/22 06:00 INR 0.95 (0.8-1.2) 07/17/22 06:00 APTT 87.3 SECONDS (23.9-36.7) H 07/18/22 10:08 Sodium 138 mmol/L (136-145) 07/19/22 04:39 Potassium 3.9 mmol/L (3.5-5.1) 07/19/22 04:39 Chloride 104 mmol/L (98-107) 07/19/22 04:39 Carbon Dioxide 25 mmol/L (22-29) 07/19/22 04:39 Anion Gap 12.9 (5-19) 07/19/22 04:39 BUN 12 mg/dL (8-23) 07/19/22 04:39 Creatinine 1.0 mg/dL (0.7-1.2) 07/19/22 04:39 GFR Calculation Not Reportable 07/19/22 04:39 Glucose 96 mg/dL (65-115) 07/19/22 04:39 Calculated Osmolality 286 mOsm/kg (285-295) 07/19/22 04:39 Calcium 8.8 mg/dL (8.5-10.5) 07/19/22 04:39 Magnesium 2.2 mg/dL (1.7-2.3) 07/18/22 02:50 Total Bilirubin 0.4 mg/dL (0.15-1.2) 07/17/22 06:00 AST 32 U/L (0-40) 07/17/22 06:00 ALT 41 U/L (0-41) 07/17/22 06:00 Alkaline Phosphatase 83 U/L (40-130) 07/17/22 06:00 Troponin T Baseline 70 ng/L (0-15) H 07/17/22 06:00 Troponin T 120 Minute 98.75 ng/L (0-15) H 07/17/22 07:54 Delta Troponin T 28.75 ABS# (0-10) H* 07/17/22 07:54 Troponin T Hi Sens 6Hr 134.3 ng/L (0-15) H 07/17/22 12:47 Troponin T Hi Sens 6Hr Delta 64.3 ng/L (0-12) H* 07/17/22 12:47 Total Protein 7.2 g/dL (6.6-8.7) 07/17/22 06:00 Albumin 3.9 g/dL (3.5-5.2) 07/17/22 06:00 Globulin 3.3 g/dL (1.3-4.6) 07/17/22 06:00 Triglycerides 93 mg/dL (0-150) 07/18/22 02:50 Cholesterol 101 mg/dL (0-200) 07/18/22 02:50 LDL Cholesterol, Calc 40 mg/dL (50-129) L 07/18/22 02:50 HDL Cholesterol 42 mg/dL (60-100) L 07/18/22 02:50 LDL/HDL Ratio 0.95 RATIO (0.00-3.22) 07/18/22 02:50 Cholesterol/HDL Ratio 2.40 mg/dL (1.0-5.00) 07/18/22 02:50 Urine Color Yellow (Yellow) 07/18/22 11:20 Urine Appearance Hazy (CLEAR) A 07/18/22 11:20 Urine pH 6.5 (5-7) 07/18/22 11:20 Ur Specific [place] 1.010 (1.005-1.030) 07/18/22 11:20 Urine Protein Neg (Negative) 07/18/22 11:20 Urine Glucose (UA) Norm (Normal) 07/18/22 11:20 Urine Ketones Negative (Negative) 07/18/22 11:20 Urine Blood 3+ (Negative) H 07/18/22 11:20 Urine Nitrate Negative (Negative) 07/18/22 11:20 Urine Bilirubin Neg (Negative) 07/18/22 11:20 Urine Urobilinogen Neg mg/dL (Negative) 07/18/22 11:20 Ur Leukocyte Esterase Negative (Negative) 07/18/22 11:20 Urine RBC >100 /hpf (0-2) H 07/18/22 11:20 Urine WBC Rare /hpf (0-5) 07/18/22 11:20 Ur Squamous Epith Cells None /hpf (0-5) 07/18/22 11:20 Amorphous Sediment Not Reportable 07/18/22 11:20 Urine Bacteria None /hpf (NONE) 07/18/22 11:20 Vitals Last Vital Signs Temp 98.0 F 07/19/22 04:00 Pulse 76 07/19/22 07:29 Resp 16 07/19/22 07:29 BP 130/66 07/19/22 04:00 Pulse Ox 100 07/19/22 07:29 O2 Del Method 07/19/22 07:29 Discharge Plan Discharge Patient Disposition: Home Condition: Stable Prescriptions: New atorvastatin 40 mg Tablet 40 mg PO BEDTIME Qty: 30 0RF isosorbide mononitrate 30 mg Tablet Extended Release 24 Hr 30 mg PO DAILY Qty: 30 0RF clopidogrel 75 mg Tablet 75 mg PO DAILY Qty: 30 11RF aspirin 81 mg Tablet,Delayed Release (Dr/Ec) 81 mg PO DAILY Qty: 30 0RF Continued losartan-hydrochlorothiazide 100-12.5 mg tablet 1 tab PO DAILY Discharge Orders: Discharge Order (Routine); Ordered 07/19/22 Ordered By: Anthony Carvajal Referrals: Andrew Rowland MD [Physician] - 3 months Rica Lee FNP [Nurse Practitioner] - 08/07/22 9:00 am ([facility] has scheduled a follow-up appointment with Christina Lee on 08/07/2022 at 9:00. If you have any questions, please call [phone].) Yonis Kim MD [Physician] - 07/23/22 1:15 pm Discharge Diet: Cardiac Discharge Activity: Increase activity as tolerated Patient Instructions: Coronary Angioplasty (DC), Opioid Safety, Pain Management Activity Restrictions/Additional Instructions: No lifting over 5 pounds for 2 days with the right arm. Take all medicine as prescribed Return for any concerns When following up with primary care provider, mention that you had blood in your urine 1 time, so this can be rechecked Patient's Health Concerns: Chest pain Assessment: Coronary artery disease Plan of Treatment: Status post angioplasty Goals: Continued medical management Discharge Attestations Time Spent in Discharge Care*: greater than 30 min Quality Metrics Clinical Quality Measures [ Acute Myocardial Infaction { Clinical Trial Participant: No; Contraindication to aspirin: None; Aspirin prescribed; Contraindication to statin: None; Statin prescribed;}] Coding Level of Care Code 43532 Total time (in minutes) for Discharge: 34 Diagnoses Obstructive sleep apnea G47.33 Hypertension I10 Unstable angina pectoris I20.0 Non-ST elevation RI (NSTEMI) I21.4 Obesity E66.9 Hypertension I10
[2022-07-19] MEDS: losartan 50 mg Tablet 100 MG PO (08:31)
[2022-07-19] MEDS: aspirin 81 mg EC Tablet PO (08:31)
[2022-07-19] MEDS: clopidogrel 75 mg Tablet PO (08:31)
[2022-07-19] MEDS: pantoprazole DR 40 mg Tablet PO (08:31)
[2022-07-19] MEDS: isosorbide mononitrate ER 30 mg Tablet PO (08:31)
--- NOTE | 2022-07-19 10:15 | PC.NURSE ---
meds to bed delivered by pharmacy.
[2022-07-19 10:17] VITALS: PULSE 77; RESP 18; TEMP 36.7; O2SAT 95
== END 2022-07-19 10:45 | disposition home or self-care (01) ==
LOC: ER 08:41 → ER IP 11:00 → CSU 14:37
PROVIDERS: Internal Medicine Cardiovascular Disease; Admitting Provider Internal Medicine; Emergency Provider Family Medicine; Visit Provider Internal Medicine
DX: I21.4 Non-ST elevation (NSTEMI) myocardial infarction (principal); I10 Essential (primary) hypertension; E66.9 Obesity, unspecified; Z68.34 Body mass index [BMI] 34.0-34.9, adult; G47.33 Obstructive sleep apnea (adult) (pediatric); I25.110 Atherosclerotic heart disease of native coronary artery with unstable angina pectoris
CPT/HCPCS: 36415; 71045; 80048; 80053; 80061; 81001; 83735; 84484; 85025; 85610; 85730; 87086; 92920; 93005; 93306; 93458; 96365; 96375; 96376; 99152; 99153; 99291; A9270; C1725; C1769; C1874; C1887; C1894; G0378; J1644; J2250; J3010; J3490; J7030; Q0163; Q9967

== ENCOUNTER 2023-09-29 11:35 | Emergency (ER) | payer MEDICARE, SELFPAY ==
[2023-09-29 11:39] VITALS: BP 152/87; PULSE 77; RESP 16; TEMP 37; O2SAT 94
--- NOTE | 2023-09-29 13:14 | ED_ITS ---
HPI - Animal Bite General: Chief Complaint: Animal Bite Stated Complaint: left leg, insect bite Time Seen by Provider: 09/29/23 13:12 History of Present Illness: 72-year-old male patient comes in today with some redness and tenderness to the anterior left knee. Patient reports insect bite x 2 to 3 days. Patient reports tenderness starting yesterday. Patient is a Turkish-speaking individual and has family that is interpreting for him. Review of Systems General: Reports: 10 or more systems reviewed and unremarkable except in HPI and below Musc: Reports: extremity pain (Left knee) Skin/Breast: Reports: erythema PFSH ED PFSH: Medical History Hypertension Non-ST elevation [place] (NSTEMI) Obstructive sleep apnea On CPAP Surgical History History of hernia surgery Family History Other Hypertension Stroke Denies family history of Diabetes CAD (coronary artery disease) Clotting disorder Dementia Hyperlipidemia Psychiatric illness Chronic kidney disease (CKD) Anesthesia complication Bleeding disorder Lung disease Cancer Social History Smoking and tobacco/nicotine status: never used tobacco/nicotine Alcohol intake: never Substance/Drug Use: never Lives independently: Yes Marital status: Number of children: 4 Current occupational status: retired Current gender identity: Male Special jasper needs: No Agree to transfusion: Yes Physical Exam Const: COMMON NORMALS: alert HENMT: COMMON NORMALS: normocephalic HEAD & SCALP: normocephalic Neck/C-Spine: COMMON NORMALS: full ROM Chest: COMMONS NORMALS: normal inspection of the chest Resp: COMMON NORMALS: normal respiratory effort Cardio: COMMON NORMALS: regular rate RATE: regular rate GI: COMMON NORMALS: Soft to palpation and non-tender PALPATION: Yes Soft to palpation Back/Pelvis: COMMON NORMALS: thoracic and lumbar spine normal to inspection Extremity: LEFT LOWER EXTREMITY: Yes knee joint (Anterior redness and tenderness punctate lesion) Neuro: SENSORIUM/ORIENTATION: Yes alert Skin: NARRATIVE SKIN EXAM: Redness and tenderness anterior left knee Course Vital Signs: Vital signs: Vital Signs Temperature 98.6 F 09/29/23 11:39 Pulse Rate 77 09/29/23 11:39 Respiratory Rate 16 09/29/23 11:39 Blood Pressure 152/87 09/29/23 11:39 Pulse Oximetry 94 09/29/23 11:39 Oxygen Delivery Me thod Room Air 09/29/23 11:39 MDM - Animal Bite Medical Decision Making 72-year-old male patient comes in today with tenderness to the anterior left knee. On exam patient has some anterior tenderness with induration of the skin and a punctate lesion. No significant fluctuance is noted in the joint of the knee and minimal swelling. Patient has good range of motion of the knee. Redness is located surrounding the punctate lesion. Differential diagnosis includes not limited to cellulitis, bursitis, localized reaction to insect bite, folliculitis, septic arthritis. No signs of severe illness is noted at this ti me. Patient will be covered with dual treatment antibiotics including Augmentin and Bactrim. Patient was given 1 g of Rocephin in the emergency department, tetanus was updated, and patient was given a dose of Bactrim DS. Patient and family both reported understanding of care plan and need for follow-up or return to ER for worsening symptoms. No radiology studies performed this visit Discharge Plan Discharge Patient Disposition: Home Clinical Impression: Cellulitis of knee, left Condition: Stable Prescriptions: New amoxicillin-pot clavulanate 875-125 mg tablet 1 tab PO BID Qty: 14 0RF sulfamethoxazole-trimethoprim 800-160 mg tablet 1 tab PO BID 7 Days Qty: 14 0RF No Action isosorbide mononitrate 30 mg tablet extended release 24 hr 30 mg PO DAILY Qty: 90 0RF losartan-hydrochlorothiazide 100-12.5 mg tablet 1 tab PO DAILY Qty: 90 1RF clopidogrel 75 mg tablet 75 mg PO DAILY Qty: 90 1RF atorvastatin 40 mg tablet 40 mg PO BEDTIME Qty: 90 0RF aspirin 81 mg tablet,delayed release (DR/EC) 81 mg PO DAILY Qty: 90 0RF Discharge Orders: Discharge ED (Routine); Ordered 09/29/23 Ordered By: Josue John Referrals: Yonis Kim MD [Primary Care Provider] - Discharge Diet: Usual diet Discharge Activity: Increase activity as tolerated Patient Instructions: Cellulitis (ED) Activity Restrictions/Additional Instructions: Home and rest. Activity as tolerated. Use acetaminophen and/or ibuprofen as needed for pain and discomfort. Use ice or heat for further pain or discomfort. Drink plenty of water with medications. Follow-up within 3 days for recheck. Return to the emergency department for worsening symptoms such as nausea vomiting, fever greater than 100.4 ?F or 40 ?C, or new concerns. 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
[2023-09-29] MEDS: sulfamethoxazole-trimeth DS 160-800 mg Tablet 1 TAB PO (13:48)
[2023-09-29] MEDS: cefTRIAXone 1,000 MG in water for injection-sterile 2.1 ML 1 MG IM (13:48)
[2023-09-29] MEDS: tetanus-dipt-pertussis 0.5 mL SDV IM (13:49)
[2023-09-29 14:09] VITALS: BP 152/87; PULSE 77; RESP 16; TEMP 37; O2SAT 94
== END 2023-09-29 14:19 | disposition home or self-care (01) ==
PROVIDERS: Emergency Provider Nurse Practitioner Family; PCP Family Medicine
DX: L03.116 Cellulitis of left lower limb (principal); I10 Essential (primary) hypertension; Z79.899 Other long term (current) drug therapy; Z23 Encounter for immunization
CPT/HCPCS: 90471; 90715; 96372; 99284; J0696

== ENCOUNTER 2023-10-02 11:24 | Emergency (ER) | payer MEDICARE, SELFPAY ==
[2023-10-02 11:25] VITALS: BP 143/78; PULSE 68; RESP 18; TEMP 36.9; O2SAT 96; BMI 34.2
[2023-10-02 12:11] LABS: Basophils # 0.1 10^3/uL (0.0-0.1); Basophils % 0.7 %; Eosinophils # 0.3 10^3/uL (0.0-0.8); Eosinophils % 3.4 %; Hematocrit 42.8 % (37-53); Lymphocytes # 2.1 10^3/uL (0.8-4.8); Lymphocytes % 26.2 %; Mean Corpuscular HGB Conc 33.2 g/dL (30-55); Mean Corpuscular Hemoglobin 32.1 pg (27-33); Mean Corpuscular Volume 96.6 fl (82-101); Mean Platelet Volume 10.1 fL (7.4-10.4); Monocytes % 12.2 %; Neutrophils # 4.68 10^3/uL (1.8-7.7); Neutrophils % 57.4 %; Nucleated Red Blood Cells % 0 %; Platelet Count 217 10^3/cmm (157-399); Red Blood Count 4.43 10^6/uL (3.85-5.65); Red Cell Distribution Width 13.1 % (12.1-15.1); White Blood Count 8.17 10^3/uL (3.29-11.43)
--- NOTE | 2023-10-02 13:02 | ED_ITS ---
HPI - Skin/Abscess/Foreign Bdy 2 General: Chief complaint: Skin/Abscess/Foreign Body Stated complaint: left leg, insect bites Time Seen by Provider: 10/02/23 13:01 History of Present Illness: 72-year-old male patient comes in today with a indurated area to the left knee. Patient was seen on Saturday and was started on Bactrim and Augmentin for treatment of cellulitis versus folliculitis. Patient reports no fever. Patient is able to ambulate without difficulty. Patient appears nontoxic. Review of Systems 2 General: Reports: 10 or more systems reviewed and unremarkable except in HPI and below Skin/Breast: Reports: erythema PFSH ED 2 PFSH: Medical History Hypertension Non-ST elevation [place] (NSTEMI) Obstructive sleep apnea On CPAP Surgical History History of hernia surgery Family History Other Hypertension Stroke Denies family history of Diabetes CAD (coronary artery disease) Clotting disorder Dementia Hyperlipidemia Psychiatric illness Chronic kidney disease (CKD) Anesthesia complication Bleeding disorder Lung disease Cancer Social History Smoking and tobacco/nicotine status: never used tobacco/nicotine Alcohol intake: never Substance/Drug Use: never Lives independently: Yes Marital status: Number of children: 4 Current occupational status: retired Current gender identity: Male Special jasper needs: No Agree to transfusion: Yes Physical Exam 2 Const: COMMON NORMALS: alert HENMT: COMMON NORMALS: normocephalic HEAD & SCALP: normocephalic Neck/C-Spine: COMMON NORMALS: full ROM Resp: COMMON NORMALS: normal respiratory effort and clear to auscultation bilaterally AUSCULTATION: clear to auscultation bilaterally Cardio: COMMON NORMALS: regular rate RATE: regular rate GI: COMMON NORMALS: non-tender Extremity: LEFT LOWER EXTREMITY: Yes knee joint (Distal area of redness to the knee joint centralized lesion) Neuro: SENSORIUM/ORIENTATION: Yes alert Skin: NARRATIVE SKIN EXAM: Patient is an area of redness to the anterior left knee no distal swelling is noted. Area of redness approximately 12 cm x 3 cm. Punctate lesions distal part of the knee on the lateral side. Procedures Abscess I/D Side (if applicable): left Local Anesthetic: lidocaine 2% and with epi Amount of anesthesia used (mL): 1 Technique: incised with #11 blade Amount of fluid expressed (mL): 1 Irrigation: Yes Packing used?: none Course 2 Vital Signs: Vital signs: Vital Signs Temperature 98.4 F 10/02/23 11:25 Pulse Rate 64 10/02/23 13:56 Respiratory Rate 16 10/02/23 13:34 Blood Pressure 157/78 10/02/23 13:56 Pulse Oximetry 96 10/02/23 13:56 Oxygen Delivery Me thod Room Air 10/02/23 13:34 MDM - Skin/Abscess/Foreign Bdy Medicial Decision Making Patient comes in today for reevaluation of wound to the left lateral knee. On exam patient appears nontoxic. Patient appears no acute distress. Patient is able to ambulate with minimal to no difficulty. Patient has a area of redness that is approximately 3 cm circular with an area of surrounding mild erythema approximately 12 x 3 cm. With centralized induration. Differential diagnosis includes but not limited to folliculitis, abscess, cellulitis, local reaction to insect bite. X-ray was unremarkable. CBC was normal. Area was cleaned and a small incision was made and a small amount of purulent drainage was incised from the wound. Seems to be more induration than actual abscess formation. Mupirocin ointment was applied postprocedure. Patient was recommended to continue with oral antibiotics and add mupirocin ointment to the wound. Believe that this is a infected hair follicle more so than the insect bite with surrounding cellulitis. Lab Data 10/02/23 12:05 Radiology Impressions Knee X-Ray 10/02/23 13:05 Impression: 1. Mild narrowing of the medial and lateral joint compartments. 2. Negative for soft tissue mass or abscess. Kellgren-Sb Classification: grade 1 (doubtful): doubtful joint space narrowing and possible osteophytic lipping Laboratory Results WBC 8.17 10^3/uL (3.29-11.43) 10/02/23 12:05 RBC 4.43 10^6/uL (3.85-5.65) 10/02/23 12:05 Hgb 14.20 g/dL (11.27-16.99) 10/02/23 12:05 Hct 42.8 % (37-53) 10/02/23 12:05 MCV 96.6 fl (82-101) 10/02/23 12:05 MCH 32.1 pg (27-33) 10/02/23 12:05 MCHC 33.2 g/dL (30-55) 10/02/23 12:05 RDW 13.1 % (12.1-15.1) 10/02/23 12:05 Plt Count 217 10^3/cmm (157-399) 10/02/23 12:05 MPV 10.1 fL (7.4-10.4) 10/02/23 12:05 Neut % (Auto) 57.4 % 10/02/23 12:05 Lymph % (Auto) 26.2 % 10/02/23 12:05 [place] % (Auto) 12.2 % 10/02/23 12:05 Eos % (Auto) 3.4 % 10/02/23 12:05 Baso % (Auto) 0.7 % 10/02/23 12:05 Neut # (Auto) 4.68 10^3/uL (1.8-7.7) 10/02/23 12:05 Lymph # (Auto) 2.1 10^3/uL (0.8-4.8) 10/02/23 12:05 [place] # (Auto) 1.0 10^3/uL (0.2-0.9) H 10/02/23 12:05 Eos # (Auto) 0.3 10^3/uL (0.0-0.8) 10/02/23 12:05 Baso # (Auto) 0.1 10^3/uL (0.0-0.1) 10/02/23 12:05 Nucleated RBC % (auto) 0 % 10/02/23 12:05 Nucleated RBCs # 0.0 /100WBC 10/02/23 12:05 All radiology interpretation(s) finalized by discharge Discharge Plan Discharge Patient Disposition: Home Clinical Impression: Cellulitis of knee, left Condition: Stable Prescriptions: New mupirocin 2 % ointment 1 applic topical BID Qty: 22 0RF No Action isosorbide mononitrate 30 mg tablet extended release 24 hr 30 mg PO DAILY Qty: 90 0RF losartan-hydrochlorothiazide 100-12.5 mg tablet 1 tab PO DAILY Qty: 90 1RF clopidogrel 75 mg tablet 75 mg PO DAILY Qty: 90 1RF atorvastatin 40 mg tablet 40 mg PO BEDTIME Qty: 90 0RF aspirin 81 mg tablet,delayed release (DR/EC) 81 mg PO DAILY Qty: 90 0RF amoxicillin-pot clavulanate 875-125 mg tablet 1 tab PO BID Qty: 14 0RF sulfamethoxazole-trimethoprim 800-160 mg tablet 1 tab PO BID 7 Days Qty: 14 0RF Discharge Orders: Discharge ED (Routine); Ordered 10/02/23 Ordered By: Josue John Referrals: Yonis Kim MD [Primary Care Provider] - Patient Instructions: Abscess Incision and Drainage (DC) Activity Restrictions/Additional Instructions: Use mupirocin ointment 2 times a day to the wound until healed. Follow-up with primary care in 2 to 3 days for recheck. Return to ED for persistent worsening symptoms. 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
--- NOTE | 2023-10-02 13:05 | XR_ITS ---
WS: [id number] Left knee, 3 views, 10/02/2023 Clinical Data: wound infection Comparison: None. Findings: No fractures or dislocations are seen. There is narrowing of the medial and lateral joint compartment s. No bone destruction or erosion is seen. The patella is intact. The soft tissues are unremarkable. There is vascular calcification. XR/XR knee LT 3V* [id number] Impression: 1. Mild narrowing of the medial and lateral joint compartments. 2. Negative for soft tissue mass or abscess. Kellgren-Sb Classification: grade 1 (doubtful): doubtful joint space narr owing and possible osteophytic lipping
[2023-10-02 13:10] VITALS: BP 141/74; PULSE 61; RESP 16; O2SAT 96
[2023-10-02 13:34] VITALS: BP 164/64; PULSE 62; RESP 16; O2SAT 98
[2023-10-02 13:56] VITALS: BP 157/78; PULSE 64; O2SAT 96
[2023-10-02] MEDS: mupirocin oint 22 gm 1 APPLIC TOPICAL (13:56)
== END 2023-10-02 13:57 | disposition home or self-care (01) ==
PROVIDERS: Emergency Medicine; Emergency Provider Nurse Practitioner Family; PCP Family Medicine
DX: L03.116 Cellulitis of left lower limb (principal); Z79.02 Long term (current) use of antithrombotics/antiplatelets; Z79.82 Long term (current) use of aspirin; I10 Essential (primary) hypertension; I25.2 Old myocardial infarction
CPT/HCPCS: 36415; 73562; 85025; 99284